=== PATIENT | female | born 1995 | race Two or more races ===

== ENCOUNTER 2024-10-13 21:17 | Emergency (ER) | payer MEDICAID, OTHER ==
[~2024-10-13] VITALS: Ht 160 cm; Wt 55.1 kg
--- NOTE | 2024-10-13 22:11 | ED.PDOC ---
HPI Allergic reaction HPI Comments 29-year-old female came to ER for allergic reaction. Patient states about an hour ago, she developed sudden onset generalized, pruritic maculopapular rashes all over. Denies any throat pain, throat swelling or shortness a breath. Patient unsure what caused the allergy. 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 Family History Family History: Reviewed,noncontributory to illness Social History Smoker: Non-Smoker Alcohol: Denies ETOH Use Drugs: Denies Drug Use Lives In: Home Constitutional: denies: chills, diaphoresis, fatigue, fever, malaise, sweats, weakness, others EENTM: denies: blurred vision, double vision, ear bleeding, ear discharge, ear drainage, ear pain, ear ringing, eye pain, eye redness, hearing loss, mouth pain, mouth swelling, nasal discharge, nose bleeding, nose congestion, nose pain, photophobia, tearing, throat pain, throat swelling, voice changes, others Respiratory: denies: cough, hemoptysis, orthopnea, SOB at rest, shortness of breath, SOB with excertion, stridor, wheezing, others Cardiovascular: denies: chest pain, dizzy spells, diaphoresis, Dyspnea on exertion, edema, irregular heart beat, left arm pain, lightheadedness, pa lpitations, PND, syncope, others Gastrointestinal: denies: abdomen distended, abdominal pain, blood streaked bowels, constipated, diarrhea, dysphagia, difficulty swallowing, hematemesis, melena, nausea, poor appetite, poor fluid intake, rectal bleeding, rectal pain, vomiting, others Genitourinary: denies: abnormal vagina bleeding, burning, dyspareunia, dysuria, flank pain, frequency, hematuria, incontinence, pain, , vagina discharge, urgency, others Neurological: denies: dizziness, fainting, headache, left sided numbness, left sided weakness, numbness, paresthesia, pre-existing deficit, right sided numbness, right sided weakness, seizure, speech problems, tingling, tremors, weakness, others Musculoskeletal: denies: back pain, gout, joint pain, joint swelling, muscle pain, muscle stiffness, neck pain, others Integumetry: reports: rash; denies: bruises, change in color, change in hair/nails, dryness, laceration, lesions, lumps, wounds, others Allergic/Immunocompromised: denies: Difficulty Healing, Frequent Infections, Hives, Itching, others Hematologic/Lymphatic: denies: anemia, blood clots, easy bleeding, easy bruising, swollen glands, others Endocrine: denies: excessive hunger, excessive sweating, excessive thirst, excessive urination, flushing, intolerance to cold, intolerance to heat, unexplained weight gain, unexplained weight loss, others Psychiatric: denies: anxiety, bipolar disorder, depression, hopeless, panic disorder, schizophrenia, sleepless, suicidal, others Physical Exam General Appearance: No Apparent Distress, Normal HEENT: Normal ENT Inspection, Pharynx Normal, TMs Normal Neck: Full Range of Motion, Non-Tender, Normal, Normal Inspection Respiratory: Chest Non-Tender, Lungs Clear, No Accessory Muscle Use, No Respiratory Distress, Normal Breath Sounds Cardiovascular: No Edema, No JVD, No Murmur, No Gallop, Normal Peripheral Pulses, Regular Rate/Rhythm Breast Exam: Deferred Gastrointestinal: No Organomegaly, Non Tender, No Pulsatile Mass, Normal Bowel Sounds, Soft Genitalia: Deferred Pelvic: Deferred, No cerv. Motion Tender Rectal: Deferred Extremities: No calf tenderness, Normal capillary refill, Normal inspection, Normal range of motion, Non-tender, No pedal edema Musculoskeletal : Apperance: Normal Neurologic: Alert, head up operator helper II-XII nml as Tested, No Motor Deficits, Normal Affect, Normal Mood, No Sensory Deficits Cerebellar Function: Normal Reflexes: Normal Skin: Rash (Generalized maculopapular) Lymphatic: No Adenopathy Was a procedure done? Was a procedure done?: No Differential diagnosis (all) Differential Diagnosis: Anaphylaxis, Urticaria X-Ray, Labs, Meds, VS Vital Signs Date Time Temp Pulse Resp B/P (MAP) Pulse Ox O2 Delivery O2 Flow Rate FiO2 10/13/24 22:55 74 16 99 Room Air 10/13/24 22:55 97.6 74 17 107/69 (82) 98 97.6 10/13/24 22:34 97.9 99 20 103/71 (82) 100 97.9 10/13/24 22:34 20 100 Room Air* 0 21 Current Medications Medications (Trade) Dose Ordered Sig/Chaitanya Route Start Time Stop Time Status Last Admin Methylprednisolone Sodium Succinate (Solu Medrol) 125 mg ONCE ONCE IV 10/13/24 22:15 10/13/24 22:16 DC 10/13/24 22:39 Famotidine (Pepcid Injection) 20 mg ONCE ONCE IV 10/13/24 22:15 10/13/24 22:16 DC 10/13/24 22:39 Diphenhydramine HCl (Benadryl Injection) 50 mg ONCE ONCE IV 10/13/24 22:15 10/13/24 22:16 DC 10/13/24 22:38 Sodium Chloride 1,000 ml @ 1,000 mls/hr Q1H ONCE IV 10/13/24 22:15 10/13/24 23:14 DC 10/13/24 22:12 Time of 1ST Reevaluation: 22:05 Reevaluation 1ST: Unchanged Patient Education/Counseling: Diagnosis, Treatment Family Education/Counseling: No Family Present Departure 1 Departure Time of Disposition: 23:23 (Patient presents with allergic reaction. We will patient's stated I resolved. We will discharge patient home with outpatient follow up) Impression: Primary Impression: Allergic reaction Qualified Codes: T78.40XA - Allergy, unspecified, initial encounter Disposition: HOME / SELF CARE / HOMELESS Condition: Stable Additional Instructions: You had an allergic reaction. You received medications in the ER. You were prescribed steroids and an epinephrine pain. Please use as directed. You should follow up with your regular doctor within one week to ensure you are doing better. You may benefit from an appointment with an [facility]ler. If your symptoms worsen, or you have any other concerns then please return to the ER. e-Prescriptions Epinephrine (Anaphylaxis) (Auvi-Q) 0.1 Mg/0.1 Ml Inj 0.1 MG IJ O PRN for 1 Day, #1 INJ Prov: RONALD NAGY MD 10/13/24 Prednisone (Prednisone) 20 Mg Tab 40 MG PO DAILY for 5 Days, #10 MG Prov: RONALD NAGY MD 10/13/24 Discharged With: Self Critical Care Note Critical Care Time?: No Stability Stability form required: No Heart Score Heart Score: Heart Score Response (Comments) Value History N/A 0 EKG N/A 0 Age N/A 0 Risk Factors N/A 0 Troponin N/A 0 Total 0 I personally scribed for RONALD NAGY MD ([email or web address]) on 10/13/24 at 22:11. Electronically submitted by Luis A Addison ([email or web address]). RONALD NAGY MD October 13, 2024 22:11
[2024-10-13] MEDS: SODIUM CHLORIDE 0.9% 1,000 ML IV ONE (22:12)
[2024-10-13] MEDS: diphenhdrAMINE HCL 50 MG/1 ML VL IV ONE (22:38)
[2024-10-13] MEDS: FAMOTIDINE (10MG/ML) 2ML VL IV ONE (22:39)
[2024-10-13] MEDS: methylPREDNISolone SOD SUCC 125 MG/2 ML VL IV ONE (22:39)
[2024-10-13 22:55] VITALS: BP 107/69; PULSE 74; RESP 16; TEMP 97.6; O2SAT 99
[2024-10-13] MEDS ORDERED: PRED20TA2 PO (23:24)
[2024-10-13] MEDS ORDERED: EPIN0.1I11 IJ (23:24)
== END 2024-10-13 23:39 | disposition home or self-care (01) ==
LOC: ER 21:17
DX: T78.49XA Other allergy, initial encounter (principal); X58.XXXA Exposure to other specified factors, initial encounter
CPT/HCPCS: 96361; 96374; 96375; 99284; J1200; J2919; J3490; J7030